=== PATIENT | female | born 1980 | race Caucasian/White ===

== ENCOUNTER 2021-11-17 23:43 | Emergency (ER) | payer OTHER, SELFPAY ==
[2021-11-17 23:49] VITALS: BP 110/61; PULSE 62; RESP 18; TEMP 36.2; O2SAT 98; BMI 23.6
--- NOTE | 2021-11-17 23:55 | DI.RAD.S_ITS ---
PROCEDURE: XR ACUTE ABDOMEN SERIES INDICATIONS: chest pain, vomiting TECHNIQUE: One view chest and two views of the abdomen were acquired. COMPARISON: None. FINDINGS: Surgical changes and devices: None. Chest: Lungs are clear. Heart size is normal. No pleural effusions. No pneumoperitoneum. Abdomen: Bowel gas pattern is normal except for moderate colonic obstipation. No suspicious calcifications. Visualized solid organ contours appear normal. Bones: No suspicious bony lesions. IMPRESSION: Moderate colonic obstipation, no pneumonia found. Dictated by: Ronak Antonio M.D. on 11/18/2021 at 0:39 Approved by: Ronak Antonio M.D. on 11/18/2021 at 0:40
--- NOTE | 2021-11-17 23:55 | ED_ITS ---
HPI - Chest Pain General Chief Complaint: Chest Pain Stated Complaint: vomiting/chest pain Time Seen by Provider: 11/17/21 23:48 Source: patient Mode of arrival: Ambulatory Limitations: no limitations History of Present Illness HPI narrative: 41-year-old female nonsmoker without any significant chronic medical problems presents with her for evaluation of chest pain, vomiting and headache. She suffered a concussion on after hitting her head on a door jam. She did not lose consciousness but was having persistent headaches and some unsteady gait and was evaluated at an outside facility. At the end of the visit she was diagnosed with concussion and given appropriate return precautions. No imaging was indicated nor obtained. Today she was in her normal state of health and felt great when she went to bed. They had a fantastic meal of flank steak and salad. She woke up just prior to arrival with central chest pain and pressure as well as a sharp and stabbing pain in her abdomen. When she got to the bathroom she vomited which completely resolved her abdominal pain however the chest pain persists. She denies obvious provocation, palliation or radiation of her chest pain. She denies associated symptoms such as dizziness or lightheadedness, shortness of breath nor any exertional component. She denies any change in her bowel or urinary habits. She denies recent travel, Review of Systems Review of Systems Narrative: GENERAL: Denies chills, fatigue, malaise, fever, sweats. HEENT: Denies sinus pain, ear pain, sore throat, difficulty swallowing, dizziness. RESPIRATORY: Denies dyspnea, cough, wheezing, hemoptysis, sputum. CARDIOVASCULAR: See HPI GASTROINTESTINAL: See HPI : Denies dysuria, frequency, incontinence, hematuria, urinary retention. MUSCULOSKELETAL: denies weakness, joint pain, or bony pain SKIN: Denies rash, skin lesions, or other NEUROLOGIC: See HPI PSYCHIATRIC: No concerning psychosocial issues. 12 point review of systems is negative except for those stated above Patient History Social History Smoking Status: Never smoker Smoking Status: Never smoker alcohol intake frequency: 0-2 drinks per day Substance Use Type: does not use Exam Narrative Exam Narrative: GENERAL: [41] year old patient appears stated age. Well-developed patient, in mild distress. HEAD: Atraumatic. Normocephalic. EYES: Pupils equal round and reactive. Extraocular motions intact. No scleral icterus. No injection or drainage. ENT: Nose without bleeding, purulent drainage. Throat without erythema, tonsillar hypertrophy or exudate. Airway patent. NECK: Trachea midline. Non tender CARDIOVASCULAR: Regular rate and rhythm without murmurs, gallops, or rubs. RESPIRATORY: Clear to auscultation. Breath sounds equal bilaterally. No wheezes, rales, or rhonchi. GASTROINTESTINAL: Abdomen soft, non-tender, nondistended. EXTREMITIES: No edema or joint tenderness. BACK: Nontender without deformity or crepitance. No flank tenderness. NEURO: AOx3. SKIN: No rash or erythema of visible areas Initial Vital Signs Initial Vital Signs: Vital Signs Temperature 97.2 F L 11/17/21 23:49 Pulse Rate 62 11/17/21 23:49 Respiratory Rate 18 11/17/21 23:49 Blood Pressure 110/61 11/17/21 23:49 Pulse Oximetry 98 11/17/21 23:49 Oxygen Delivery Method 11/17/21 23:49 Scores HEART Score Heart Score history: Slightly Suspicious Heart Score EKG: Normal Heart Score Age: < 45 years old Heart Score risk factors: No known risk factors Heart Score troponin: < or = to normal limit Heart Score Total: 0 PERC Score Age greater than or equal to 50 years: No Heart rate greater than or equal to 100 bpm: No Room Air O2 Sat less than 95%: No Unilateral leg swelling: No Recent trauma or surgery: No Hemoptysis: No Prior PE or DVT: No Hormone Use: Yes Total PERC Score: 1 Wells' Criteria for PE Clinical signs and symptoms of DVT: No PE is #1 Dx or equally likely: No Heart rate > 100: No Immobilization at least 3 days or surg in previous 4 weeks: No History of PE or DVT: No Hemoptysis: No Malignancy w/Treatment within 6 months or palliative: No Wells' PE Score total: 0 Course Orders Ordered: ED Orders 11/17/21 23:55 XR acute abdomen series Stat 11/17/21 23:58 Complete Blood Count AUTO DIFF Stat Comprehensive Metabolic Panel Stat Lipase Stat Troponin & CK Cardiac Panel Stat 11/18/21 00:05 CT head/brain wo con Stat 11/18/21 00:10 D Dimer Stat 11/18/21 00:56 CT angio chest PE protocol Stat Sodium Chloride (Normal Saline 0.9%) 1,000 mls @ 150 mls/hr IV CONT DAREN Last Admin: 11/18/21 00:31 Dose: 150 mls/hr Documented By: HOWIE Discontinued Medications Pantoprazole Sodium (Pantoprazole 40 Mg Vial) 40 mg IV NOW ONE Stop: 11/18/21 00:06 Last Admin: 11/18/21 00:31 Dose: 40 mg Documented By: HOWIE Reevaluation(s) Reevaluation #1: Patient overall feels much better and is complaining of little headache, chest pain and no abdominal pain currently. Wells score is low, PERC is 1, patient has elevated D-dimer, CTA ordered Vital Signs Vital signs: Vital Signs - 8 hr 11/17/21 23:49 11/18/21 00:28 11/18/21 00:30 Temperature 97.2 F L Pulse Rate 62 57 L 59 L Respiratory Rate 18 Blood Pressure 110/61 Pulse Oximetry 98 99 98 Oxygen Delivery Method Room Air 11/18/21 00:34 11/18/21 00:34 11/18/21 01:00 Temperature Pulse Rate 54 L Respiratory Rate Blood Pressure 90/51 L 90/54 L Pulse Oximetry 98 Oxygen Delivery Method 11/18/21 01:00 11/18/21 01:30 11/18/21 01:30 Temperature Pulse Rate 60 56 L Respiratory Rate Blood Pressure 95/56 L Pulse Oximetry 98 98 Oxygen Delivery Method MDM - Chest Pain Lab Data Result diagrams: 11/17/21 23:58 11/17/21 23:58 Labs: Lab Results 11/17/21 11/17/21 11/17/21 Range/Units 23:58 23:58 23:58 WBC 7.5 (4.5-11.0) X10^3/uL RBC 4.21 (4.0-5.2) X10^6/uL Hgb 13.7 (12.0-16.0) g/dL Hct 39.4 (36-46) % MCV 93.5 (80-100) fL MCH 32.5 (26-34) PG MCHC 34.8 (30-36) % RDW 13.1 (11.6-14.8) % Plt Count 272 (150-400) X10^3/uL Neut % (Auto) 43.9 L (50-75) % Lymph % (Auto) 43.8 H (25-40) % Isabela % (Auto) 6.7 (3-14) % Eos % (Auto) 4.5 H (2-4) % Baso % (Auto) 1.1 (0-2) % Neut # (Auto) 3300 (4433-1777) /uL Lymph # (Auto) 3300 (8661-8290) /uL Isabela # (Auto) 500 (0-900) /uL Eos # (Auto) 300 (0-450) /uL Baso # (Auto) 100 (0-100) /uL D-Dimer 340 H (<230) ng/mL Sodium 141 (137-145) mmol/L Potassium 4.0 (3.4-5.1) mmol/L Chloride 106 (98-107) mmol/L Carbon Dioxide 28 (22-32) mmol/L BUN 17 (7-17) mg/dL Creatinine 0.72 (0.52-1.04) mg/dL Estimated GFR > 60 (>60) mL/min BUN/Creatinine Ratio 23.6 H (6-22) Glucose 91 (70-100) mg/dL Calcium 8.8 (8.4-10.2) mg/dL Total Bilirubin 0.4 (0.2-1.3) mg/dL AST 21 (14-36) IU/L ALT 13 (<35) IU/L Alkaline Phosphatase 62 (38-126) U/L Total Creatine Kinase 42 (30-135) U/L CK-MB (CK-2) TNP CK-MB (CK-2) Rel Index TNP Troponin I < 0.012 (0.01-0.034) ng/mL Total Protein 7.5 (6.3-8.2) g/dL Albumin 4.4 (3.5-5.0) g/dL Globulin 3.1 (1.7-4.1) g/dL Albumin/Globulin Ratio 1.4 (1.0-2.8) Lipase 40 (23-300) U/L Imaging Data CT scan - chest: Radiologist's Impression: Close Chest CTA (Signed) Ronak Antonio - 11/18/[address] (Signed) Ronak Antonio - 11/18/21 Chest/Abdomen X-ray (Signed) Ronak Antonio - 11/17/21 [place] [address] CT Scan Report Signed Patient: Qiana Emerson MR#: [id number] : 1980 Acct:[id number] Age/Sex: 41 / F Date of Service: 11/18/21 Loc: ED Accession Number: [id number] ?? Procedure: CT angio chest PE protocol Ordering Provider: Rhett Bourgeois D.O. PROCEDURE:? CT ANGIO CHEST PE PROTOCOL ? INDICATIONS:? chest pain, control, elevated dimer ? TECHNIQUE:? After the administration of intravenous contrast, 2 mm thick sections acquired from the pulmonary apices to the posterior costophrenic angles.? 3-dimensional maximum intensity projection (MIP) coronal and sagittal reformats were then acquired through the thorax.? For radiation dose reduction, the following was used:? automated exposure control, adjustment of mA and/or kV according to patient size.? ? COMPARISON:? None. ? FINDINGS:? Image quality:? Excellent.? ? Pulmonary arteries:? Pulmonary arteries are normal in size, and demonstrate no intraluminal filling defects to suggest central pulmonary embolism.? ? Lungs and pleura:? Lungs are clear.? No pleural effusions or pneumothorax.? Central and peripheral airways are patent.? ? Mediastinum:? Heart size is normal, without pericardial effusion.? No mediastinal or hilar adenopathy.? Thoracic aorta is normal in caliber and enhancement.? Esophagus is normal in caliber, without hiatal hernia.? ? Bones and chest wall:? No suspicious bony lesions.? Ribs and thoracic spine appear intact throughout.? Thyroid gland appears normal.? No axillary or supraclavicular adenopathy.? ? Abdomen:? Visualized upper abdominal solid organs appear normal in the early arterial phase of enhancement.? ? IMPRESSION:? No pulmonary embolus found, no pneumonia identified. ? ? Dictated by: Ronak Antonio M.D. on 11/18/2021 at 1:44 ? ? Approved by: Ronak Antonio M.D. on 11/18/2021 at 1:45 ? MDM Narrative Medical decision making narrative: 41-year-old female with recent concussion presents with vague ongoing headache and an episode of chest pain with vomiting. Prior to her arrival her abdominal pain had completely resolved. Her history and physical are very reassuring, labs are unremarkable except for an elevated D DImer. Multiple causes of chest pain considered including [place], PE, pneumothorax, pneumonia, aortic dissection, and pleurisy. Patient reports no radiation, no diaphoresis, no provocation with exertion, and no vomiting, heart score is low and troponin is negative. Pulmonary embolism considered given sudden onset of chest pain and use of control, however CT angiogram demonstrates no evidence of pulmonary embolism. She feels significant improvement after above-stated therapies Discharge Plan Departure Patient Disposition: Home Clinical Impression: Atypical chest pain, Vomiting, Post concussive syndrome Instructions: DI for Concussion, DI for Atypical Chest Pain Activity Restrictions/Additional Instructions: *You have been diagnosed with [postconcussion syndrome, atypical chest pain and vomiting. As we discussed your history and physical are reassuring and labs are unremarkable. Your CT scan showed no evidence of bleeding, contusion or fracture. The CT scan of your chest showed no blood clot in your labs and EKG would suggest that heart attack is incredibly unlikely] *What to do: *Please continue to take your regular medications as directed. [ ] New medication prescriptions sent to your pharmacy: [ ] [ ] New medication written as a paper prescription [ x] No new medications given *Please follow up with your primary care provider in 2-3 days, call for an appointment. Let them know you were seen in the Emergency Department and that we ask that you be seen in follow up. We will electronically transmit a record of today's note if your PCP is in our system *If you do not have a primary care provider please contact the [facility] Resource line at [phone]. They will ask some questions about your medical history and help get you set up with a doctor in the community. *Return to Emergency Department if you should have any new, worsening or concerning symptoms, such as [fever greater than 101 F, shaking chills, worsening pain, persistent vomiting or other bothersome symptoms]
--- NOTE | 2021-11-18 00:03 | PC.NURSE ---
pt states she hit her head on the door on , went to urgent care on Fri and was told she had a concussion, she has had a headache since the incident today she started having vomiting and some chest pain
--- NOTE | 2021-11-18 00:05 | DI.CT.S_ITS ---
PROCEDURE: CT HEAD/BRAIN WO CON INDICATIONS: head injury days ago, worsening pain, vomiting TECHNIQUE: Noncontrast 4.5 mm thick angled axial sections acquired from the foramen magnum to the vertex, with coronal and sagittal reformats. For radiation dose reduction, the following was used: automated exposure control, adjustment of mA and/or kV according to patient size. COMPARISON: None. FINDINGS: Image quality: Excellent. CSF spaces: Basal cisterns are patent. No extra-axial fluid collections. Ventricles are normal in size and shape. Brain: No midline shift. No intracranial masses or hemorrhage. Day-white matter interface is normal. Skull and face: Calvarium and visualized facial bones are intact, without suspicious lesions. Sinuses: Visualized sinuses and mastoids are clear. IMPRESSION: No trauma found. Dictated by: Ronak Antonio M.D. on 11/18/2021 at 0:39 Approved by: Ronak Antonio M.D. on 11/18/2021 at 0:39
[2021-11-18 00:08] LABS: Add Manual Diff / Slide Review NO; Basophils Absolute Auto 100 /uL (0-100); Basophils Percent Auto 1.1 % (0-2); Eosinophils Absolute Auto 300 /uL (0-450); Eosinophils Percent Auto 4.5 % (2-4); Hematocrit 39.4 % (36-46); Hemoglobin 13.7 g/dL (12.0-16.0); Lymphocytes Absolute Auto 3300 /uL (1100-4500); Lymphocytes Percent Auto 43.8 % (25-40); Mean Corpuscular HGB Conc 34.8 % (30-36); Mean Corpuscular Hemoglobin 32.5 PG (26-34); Mean Corpuscular Volume 93.5 fL (80-100); Monocytes Absolute Auto 500 /uL (0-900); Monocytes Percent Auto 6.7 % (3-14); Neutrophils Absolute Auto 3300 /uL (1500-7000); Neutrophils Percent Auto 43.9 % (50-75); Platelet Count 272 X10^3/uL (150-400); Red Blood Cell Count 4.21 X10^6/uL (4.0-5.2); Red Cell Distribution Width 13.1 % (11.6-14.8); White Blood Cell Count 7.5 X10^3/uL (4.5-11.0)
[2021-11-18 00:19] LABS: Alanine Aminotransferase 13 IU/L (<35); Albumin 4.4 g/dL (3.5-5.0); Albumin Globulin Ratio 1.4 (1.0-2.8); Alkaline Phosphatase 62 U/L (38-126); Aspartate Aminotransferase 21 IU/L (14-36); BUN Creatinine Ratio 23.6 (6-22); Bilirubin Total 0.4 mg/dL (0.2-1.3); Blood Urea Nitrogen 17 mg/dL (7-17); Calcium 8.8 mg/dL (8.4-10.2); Carbon Dioxide 28 mmol/L (22-32); Chloride 106 mmol/L (98-107); Creatine Kinase 42 U/L (30-135); Estimated Glomerular Filt Rate > 60 mL/min (>60); Globulin 3.1 g/dL (1.7-4.1); Glucose 91 mg/dL (70-100); HEMOLYSIS 28 (0-50); Lipase 40 U/L (23-300); Sodium 141 mmol/L (137-145); Total Protein 7.5 g/dL (6.3-8.2)
[2021-11-18 00:24] LABS: D Dimer 340 ng/mL (<230)
[2021-11-18 00:28] VITALS: PULSE 57; O2SAT 99
[2021-11-18 00:30] VITALS: PULSE 59; O2SAT 98
[2021-11-18 00:30] LABS: Troponin I < 0.012 ng/mL (0.01-0.034)
[2021-11-18] MEDS: SODIUM CHLORIDE 0.9% 1,000 ML 150 ML IV (00:31)
[2021-11-18] MEDS: PANTOPRAZOLE 40 MG VIAL IV (00:31)
[2021-11-18 00:34] VITALS: BP 90/51; PULSE 54; O2SAT 98
--- NOTE | 2021-11-18 00:56 | DI.CT.S_ITS ---
PROCEDURE: CT ANGIO CHEST PE PROTOCOL INDICATIONS: chest pain, control, elevated dimer TECHNIQUE: After the administration of intravenous contrast, 2 mm thick sections acquired from the pulmonary apices to the posterior costophrenic angles. 3-dimensional maximum intensity projection (MIP) coronal and sagittal reformats were then acquired through the thorax. For radiation dose reduction, the following was used: automated exposure control, adjustment of mA and/or kV according to patient size. COMPARISON: None. FINDINGS: Image quality: Excellent. Pulmonary arteries: Pulmonary arteries are normal in size, and demonstrate no intraluminal filling defects to suggest central pulmonary embolism. Lungs and pleura: Lungs are clear. No pleural effusions or pneumothorax. Central and peripheral airways are patent. Mediastinum: Heart size is normal, without pericardial effusion. No mediastinal or hilar adenopathy. Thoracic aorta is normal in caliber and enhancement. Esophagus is normal in caliber, without hiatal hernia. Bones and chest wall: No suspicious bony lesions. Ribs and thoracic spine appear intact throughout. Thyroid gland appears normal. No axillary or supraclavicular adenopathy. Abdomen: Visualized upper abdominal solid organs appear normal in the early arterial phase of enhancement. IMPRESSION: No pulmonary embolus found, no pneumonia identified. Dictated by: Ronak Antonio M.D. on 11/18/2021 at 1:44 Approved by: Ronak Antonio M.D. on 11/18/2021 at 1:45
[2021-11-18 01:00] VITALS: BP 90/54; PULSE 60; O2SAT 98
[2021-11-18 01:30] VITALS: BP 95/56; PULSE 56; O2SAT 98
== END 2021-11-18 02:00 | disposition home or self-care (01) ==
PROVIDERS: Emergency Provider Emergency Medicine
DX: F07.81 Postconcussional syndrome (principal); R07.89 Other chest pain; R11.10 Vomiting, unspecified
CPT/HCPCS: 36415; 70450; 71275; 74022; 80053; 82550; 83690; 84484; 85025; 85379; 93005; 96361; 96374; 99284; C9113; Q9967